=== PATIENT | female | born 1990 | race Asian ===

== ENCOUNTER → 2024-01-14 12:06 | Outpatient (CLI) | payer OTHER, SELFPAY ==
[2024-01-14 12:37] LABS: Appearance Urine UA CLEAR; Bilirubin Urine UA NEGATIVE (NEGATIVE); Color Urine UA YELLOW; Glucose Urine UA NEGATIVE (Negative); Ketones Urine UA NEGATIVE (NEGATIVE); Leukocyte Esterase Urine UA NEGATIVE (NEGATIVE); Nitrite Urine UA NEGATIVE (Negative); Occult Blood Urine UA NEGATIVE (Negative); Protein Urine UA NEGATIVE (Negative); Urobilinogen Urine UA 0.2 E.U./dL (0.2)
[2024-01-14 12:37] LABS: Add Manual Diff / Slide Review NO; Basophils Absolute Auto 100 /uL (0-100); Basophils Percent Auto 0.8 % (0-2); Eosinophils Absolute Auto 300 /uL (0-450); Eosinophils Percent Auto 2.4 % (2-4); Hematocrit 36.1 % (36-46); Hemoglobin 11.5 g/dL (12.0-16.0); Lymphocytes Absolute Auto 1600 /uL (1100-4500); Lymphocytes Percent Auto 12.9 % (25-40); Mean Corpuscular HGB Conc 31.8 % (30-36); Mean Corpuscular Hemoglobin 22.8 PG (26-34); Mean Corpuscular Volume 71.5 fL (80-100); Monocytes Absolute Auto 700 /uL (0-900); Monocytes Percent Auto 5.5 % (3-14); Neutrophils Absolute Auto 9500 /uL (1500-7000); Neutrophils Percent Auto 78.4 % (50-75); Platelet Count 265 X10^3/uL (150-400); Red Blood Cell Count 5.05 X10^6/uL (4.0-5.2); Red Cell Distribution Width 16.3 % (11.6-14.8); White Blood Cell Count 12.1 X10^3/uL (4.5-11.0)
[2024-01-14 12:43] LABS: pH Urine UA 5.5 (4.5-8.0)
[2024-01-14 13:58] LABS: HEMOLYSIS < 15 (0-50); Iron 87 ug/dL (37-170)
[2024-01-14 14:02] LABS: Urine N gonorrhoeae NOT DETECTED
[2024-01-14 14:09] LABS: Percent Iron Saturation 35 % (15-50); Total Iron Binding Capacity 248 ug/dL (265-497); Transferrin 217 mg/dL (206-381)
[2024-01-14 14:11] LABS: Urine Chlamydia NOT DETECTED
[2024-01-14 14:34] LABS: Ferritin 30 ng/mL (6-137)
[2024-01-14 17:29] LABS: Hep C Virus Ab w/Reflex Quant NEGATIVE s/c (NEGATIVE)
[2024-01-14 17:55] LABS: Hepatitis B Surface Antigen NEGATIVE s/c (NEGATIVE); Rubella Antibody IgG 58.8 IU/mL (>15)
[2024-01-14 18:04] LABS: HIV 1 & 2 Ab/Ag 4th Gen Combo NEGATIVE (NEGATIVE)
[2024-01-15 05:54] LABS: RPR Screen Non Reactive (Non Reactive)
[2024-01-15 08:10] LABS: Varicella IgG Antibody <135 index (Immune >165)
== END ==
PROVIDERS: Referring Provider Family Medicine; Visit Provider Family Medicine
DX: Z34.01 Encounter for supervision of normal first pregnancy, first trimester (principal); D50.9 Iron deficiency anemia, unspecified
CPT/HCPCS: 36415; 80055; 81003; 82728; 83540; 83550; 86787; 86803; 86850; 86900; 86901; 87086; 87389; 87491; 87591

== ENCOUNTER → 2024-02-11 09:44 | Outpatient (CLI) | payer OTHER, SELFPAY ==
--- NOTE | 2024-02-11 09:45 | DI.US.S_ITS ---
PROCEDURE: US OB >= 14 WEEKS FETUS INDICATIONS: anatomy US OUTSIDE/PRIOR DATING DATA: Last menstrual period (LMP): 09/24/2023. LMP-based estimated date of delivery (RICH): 06/30/2024. TECHNIQUE: Real-time scanning was performed of the fetus, with image documentation and biometric measurements. Endovaginal scanning: Not performed COMPARISON: None. FINDINGS: General: A single living intrauterine gestation is present. Presentation: Variable. Placenta: Placental position is fundal , without previa. Amniotic fluid index: 16.9 cm, normal range is 5-24 cm. Single deepest vertical pocket is 6.1 cm. heart rate: 149 beats per minute. Maternal cervical canal: 3.6 cm long. Normal lower limit is 2.5 cm. biometrics: Biparietal diameter: 4.7 centimeters, 20 weeks 2 days Head circumference: 17.8 centimeters, 20 weeks 3 days Abdominal circumference: 15.4 centimeters, 20 weeks 4 days Femur length: 3.4 centimeters, 20 weeks 3 days Clinically estimated gestational age: 20 weeks 0 days Composite gestational age from present scan: 20 weeks 3 days Estimated weight and percentile: 360 grams, 75th percentile Anatomic survey: Neuro: Ventricles are non-dilated at less than 10 mm. Cisterna magna is normal at 3-11 mm. Cerebellum is normal in size and morphology. Nuchal skin fold: Normal at less than 6 mm between 14-21 weeks gestational age. Face: Nose and lips, facial profile are normal. Spine: No evidence for spina bifida. Heart: Possible echogenic intracardiac focus within the left ventricle. 4-chambered heart is present, with normal ventricular outflow tracts. Diaphragm: Diaphragm is intact. Stomach: Left-sided stomach is present. Kidneys: No hydronephrosis. Normal is less than 5 mm in 2nd trimester, less than 7 mm in 3rd trimester. Cord: 3-vessel cord has orthotopic insertion. Bladder: Normal in size. Extremities: All 4 extremities identified. IMPRESSION: 1. Single live intrauterine consistent with 20 weeks and 3 days. 2. Possible echogenic focus within the left ventricle. Recommend short-term follow-up and consider aneuploidy screening. 3. The remainder of the anatomic survey is within normal limits. We strive to produce accurate, complete, and clear reports of imaging services. To assist us in improving patient care, this report was composed using standard report templates and voice recognition software. Therefore, it may contain abnormal punctuation, insertions and/or omissions. Occasional wrong-word or sound-alike substitutions may occur. Though we review the report and make efforts to correct it, we do recommend that the report be read carefully in proper context to recognize any text inaccuracies. Dictated by: Donavan Henao M.D. on 02/11/2024 at 12:20 Approved by: Donavan Henao M.D. on 02/11/2024 at 12:24
== END ==
PROVIDERS: Referring Provider Family Medicine; Visit Provider Family Medicine
DX: Z34.00 Encounter for supervision of normal first pregnancy, unspecified trimester (principal); Z3A.20 20 weeks gestation of pregnancy
CPT/HCPCS: 76811

== ENCOUNTER → 2024-03-10 09:50 | Outpatient (CLI) | payer OTHER, SELFPAY ==
--- NOTE | 2024-03-10 09:50 | DI.US.S_ITS ---
PROCEDURE: US OB LIMITED INDICATIONS: echogenic intracardiac focus w/in the lft ventricle on OUTSIDE/PRIOR DATING DATA: Last menstrual period (LMP): September 24, 2023. LMP-based estimated date of delivery (RICH): June 30, 2024. The calculations are made using the clinical RICH of June 30, 2024. TECHNIQUE: Real-time scanning was performed of the fetus, with image documentation. Endovaginal scanning: Not performed COMPARISON: [facility], US, OB >= 14 WEEKS FETUS, 02/11/2024, 10:04. FINDINGS: A single living intrauterine gestation is present. Presentation: Vertex. Placenta: Placental position is fundal, without previa. Amniotic fluid index: 17.2 cm, normal range is 5-24 cm. Single deepest vertical pocket is 4.5 cm. heart rate: 155 beats per minute. Maternal cervical canal: 2.9 cm long. Normal lower limit is 2.5 cm. Clinically estimated gestational age: Approximately 24 weeks and 0 days. Evaluation of the heart demonstrates possible persistent echogenic foci in the left ventricle but appears less conspicuous. Similar finding in the right ventricle. nose and lips appears within normal limits. IMPRESSION: Single living intrauterine gestation with estimated gestational age of approximately 24 weeks 0 days. Re-evaluation of the cardiac structures demonstrate possible persistent echogenic foci in the bilateral ventricles which overall appears less prominent. Findings are nonspecific and can be seen in to 20% of normal fetuses. In the absence of other anatomic abnormalities or maternal risk factors, this finding is most likely a normal variant either representing the normal papillary muscle or chordae tendinae and is of doubtful clinical significance. Recommend correlation with maternal risk factors and further evaluation as clinically appropriate. A follow up ultrasound at 32 weeks can also be considered. Dictated by: Myron Cesar M.D. on 03/11/2024 at 9:52 Approved by: Myron Cesar M.D. on 03/11/2024 at 10:20
[2024-03-10 12:41] LABS: Hematocrit 34.5 % (36-46); Mean Corpuscular Hemoglobin 23.5 PG (26-34); Mean Corpuscular Volume 73.4 fL (80-100); Platelet Count 276 X10^3/uL (150-400); Red Cell Distribution Width 16.4 % (11.6-14.8); White Blood Cell Count 13.3 X10^3/uL (4.5-11.0)
[2024-03-10 13:08] LABS: Natera Collection Specimen Collected
[2024-03-10 14:35] LABS: GTT (PREG) 1 Hour PP 50gm Dose 147 mg/dL (76-139)
== END ==
PROVIDERS: Family Medicine; Referring Provider Family Medicine; Visit Provider Family Medicine
DX: O99.012 Anemia complicating pregnancy, second trimester (principal); D50.9 Iron deficiency anemia, unspecified; O99.342 Other mental disorders complicating pregnancy, second trimester; Z31.430 Encounter of female for testing for genetic disease carrier status for procreative management; Z3A.24 24 weeks gestation of pregnancy
CPT/HCPCS: 76815; 82950; 85027

== ENCOUNTER → 2024-06-02 10:11 | Outpatient (CLI) | payer OTHER, SELFPAY ==
[2024-06-03 09:35] LABS: Strep Grp B PCR NEG for Grp B Strep
== END ==
PROVIDERS: Visit Provider Family Medicine
DX: O09.519 Supervision of elderly primigravida, unspecified trimester (principal); D50.9 Iron deficiency anemia, unspecified
CPT/HCPCS: 87653

== ENCOUNTER 2024-06-02 10:30 | Outpatient (CLI) | payer OTHER, SELFPAY ==
[2024-06-02 11:51] LABS: Add Manual Diff / Slide Review NO; Basophils Absolute Auto 0 /uL (0-100); Basophils Percent Auto 0.4 % (0-2); Eosinophils Absolute Auto 300 /uL (0-450); Eosinophils Percent Auto 2.4 % (2-4); Hematocrit 36.8 % (36-46); Hemoglobin 11.8 g/dL (12.0-16.0); Lymphocytes Absolute Auto 1600 /uL (1100-4500); Lymphocytes Percent Auto 13.6 % (25-40); Mean Corpuscular HGB Conc 32.1 % (30-36); Mean Corpuscular Hemoglobin 23.9 PG (26-34); Mean Corpuscular Volume 74.7 fL (80-100); Monocytes Absolute Auto 1000 /uL (0-900); Monocytes Percent Auto 8.7 % (3-14); Neutrophils Absolute Auto 8800 /uL (1500-7000); Neutrophils Percent Auto 74.9 % (50-75); Platelet Count 252 X10^3/uL (150-400); Red Blood Cell Count 4.93 X10^6/uL (4.0-5.2); Red Cell Distribution Width 15.3 % (11.6-14.8); White Blood Cell Count 11.8 X10^3/uL (4.5-11.0)
== END 2024-06-02 11:15 | disposition home or self-care (01) ==
LOC: LABOR 10:41 → OB 06-07 06:14
PROVIDERS: Referring Provider Family Medicine; Visit Provider Family Medicine
DX: O09.513 Supervision of elderly primigravida, third trimester (principal); Z3A.36 36 weeks gestation of pregnancy
CPT/HCPCS: 59025; 76816; 85025; 87653; G0378; G0379

== ENCOUNTER → 2024-06-02 10:31 | Outpatient (CLI) | payer OTHER, SELFPAY ==
--- NOTE | 2024-06-02 10:33 | DI.US.S_ITS ---
PROCEDURE: US OB FOLLOW UP INDICATIONS: GROWTH OUTSIDE/PRIOR DATING DATA: Last menstrual period (LMP): 09/29/2023. LMP-based estimated date of delivery (RICH): 06/30/2024 First dating scan (date and location): Unknown. Estimated date of delivery (RICH) from first dating scan: Unknown. TECHNIQUE: Real-time scanning was performed of the fetus, with image documentation. COMPARISON: [facility], OB LIMITED, 03/10/2024, 10:13. FINDINGS: A single living intrauterine gestation is present. Presentation: Vertex. Placenta: Placental position is fundal, without previa. Amniotic fluid index: 18.9 cm, normal range is 5-24 cm. heart rate: 143 beats per minute. Maternal cervical canal: 7 point cm long. Normal lower limit is 2.5 cm. Clinically estimated gestational age: 36 weeks 0 days Estimated gestational age from initial scan: 37 weeks 0 days BPD: 9.1 cm 36 weeks 6 days HC: 32 cm 36 weeks 0 days AC: 34 cm 37 weeks 6 days FL: 7.3 cm 37 weeks 3 days. weight 3208 grams, 86th percentile IMPRESSION: Single live intrauterine with gestational age 37 weeks 0 days from today's exam. Dictated by: Little Wilburn M.D. on 06/02/2024 at 16:06 Approved by: Little Wilburn M.D. on 06/02/2024 at 16:11
== END ==
PROVIDERS: Referring Provider Family Medicine; Visit Provider Family Medicine
DX: O09.513 Supervision of elderly primigravida, third trimester (principal); Z3A.37 37 weeks gestation of pregnancy
CPT/HCPCS: 76816

== ENCOUNTER 2024-06-09 11:07 | Outpatient (CLI) | payer OTHER, SELFPAY | END 2024-06-09 12:23 | disposition home or self-care (01) | LOC: LABOR 11:34 → OB 06-14 07:23 | PROVIDERS: Referring Provider Family Medicine; Visit Provider Family Medicine | DX: O09.513 Supervision of elderly primigravida, third trimester (principal); Z3A.37 37 weeks gestation of pregnancy | CPT/HCPCS: 59025; G0378; G0379 ==

== ENCOUNTER 2024-06-16 11:04 | Outpatient (CLI) | payer OTHER, SELFPAY | END 2024-06-16 11:45 | disposition home or self-care (01) | LOC: LABOR 11:26 → OB 06-20 06:36 | PROVIDERS: Referring Provider Family Medicine; Visit Provider Family Medicine | DX: O09.513 Supervision of elderly primigravida, third trimester (principal); Z3A.35 35 weeks gestation of pregnancy | CPT/HCPCS: 59025; G0378; G0379 ==

== ENCOUNTER 2024-06-23 11:10 | Outpatient (CLI) | payer OTHER, SELFPAY | END 2024-06-23 11:51 | disposition home or self-care (01) | LOC: LABOR 11:53 → OB 06-24 15:30 | PROVIDERS: Referring Provider Family Medicine; Visit Provider Family Medicine | DX: O09.513 Supervision of elderly primigravida, third trimester (principal); Z3A.39 39 weeks gestation of pregnancy | CPT/HCPCS: 59025; G0378; G0379 ==

== ENCOUNTER 2024-06-26 20:05 | Inpatient (IN) | payer OTHER, SELFPAY ==
[2024-06-26 22:57] LABS: Add Manual Diff / Slide Review NO; Basophils Absolute Auto 0 /uL (0-100); Basophils Percent Auto 0.2 % (0-2); Eosinophils Absolute Auto 300 /uL (0-450); Eosinophils Percent Auto 2.5 % (2-4); Hematocrit 36.7 % (36-46); Hemoglobin 11.9 g/dL (12.0-16.0); Lymphocytes Absolute Auto 1300 /uL (1100-4500); Lymphocytes Percent Auto 11.9 % (25-40); Mean Corpuscular HGB Conc 32.3 % (30-36); Mean Corpuscular Volume 74.3 fL (80-100); Monocytes Absolute Auto 900 /uL (0-900); Monocytes Percent Auto 8.1 % (3-14); Neutrophils Absolute Auto 8500 /uL (1500-7000); Neutrophils Percent Auto 77.3 % (50-75); Platelet Count 248 X10^3/uL (150-400); Red Blood Cell Count 4.94 X10^6/uL (4.0-5.2); Red Cell Distribution Width 15.3 % (11.6-14.8)
[2024-06-26] MEDS: miSOPROStoL 25 MCG TABLET 50 MCG PO (23:11)
--- NOTE | 2024-06-27 00:52 | PM.OBHP.1 ---
OB HPI Date/Time Date of admission: 06/26/24 History of Present Condition Chief complaint: Induction : 1 Para: 0 Estimated Date of Delivery: 06/30/24 Estimated Gestational Age (weeks): 39+4 Narrative: Luis Davis is a 33 year old female Comments: presenting for induction of labor. Indications Indication for induction OB: other History of Present care: good care Dating criteria: LMP confirmed by 1st trimester US Ultrasounds: normal mid trimester US Abnormal ultrasound findings: left echogenic focus Narrative: G1 [place] Mandarin speaker, but fluent in Samoan, may need hemstitcher only for complex medical conversation ( also speaks Mandarin, but lacks medical vocabulary) Hemant Beta thalasemia trait - hgb stable Persistent echogenic foci in the bilateral ventricles -> referred to [facility] for level 2 US and cleared Failed 1 hr GTT, passed 3 hr Varicella non immune AMA Assigned to Saranya [facility] melisa w/ Margo Preadmission Labs Blood type: A (+) positive -: Antibody screen: negative, Cystic fibrosis screen: negative, GBS status: negative, HBsAG: negative, HIV: negative, HSV 1: unknown, HSV 2: unknown and RPR/VDLR: negative -: Chlamydia screen: not detected and Gonorrhea screen: not detected -: Rubella: immune and Varicella: not immune HCT: 36.7 HCAB: negative PAP: Normal Cell-free DNA: low risk 1 hr GTT: 147 3 hr GTT: 3 hr (negative) Evaluation Evaluation Baseline heart rate: 130 Variability: Moderate (11-25) monitor accelerations: Present Monitor Decelerations: Absent Status: Category l Dilation (cm): 1 Effacement (%): 50 station: -2 [facility] Medical History (Updated 02/11/24 @ 18:34 by Brian Mckee MD) Microcytic anemia Dental root implant present Surgical History (Updated 01/13/24 @ 14:36 by Mariza Gaxiola RN) [place] teeth extracted Family History (Updated 02/28/24 @ 20:32 by Millie Cook) Grandfather Stroke Smoker Alcohol abuse Cancer Social History marital status: number of children: 0 household members: spouse lives independently: Yes caregiver/support person: No housing: house pets and animals: Yes (cat, no litter box) education level: college occupational status: employed current occupational exposures/hazards: Yes (mostly gas/propane fumes) special jazz needs: No travel history: recent seatbelt use: always helmet use: No water heater temp set < 120 deg: Yes working smoke detector in home: No fire extinguisher in home: Yes firearms in home: Yes firearms unloaded and locked: No (unloaded, but not locked up (family heirloom)) Smoking Status: Never smoker second hand exposure: No alcohol intake: former substance use type: does not use during the past year weight has: remained stable well-balanced diet: daily or most days daily servings fruits/ve or more times/day caffeine: Yes (mostly tea) Type(s) of exercise: walking, other and yoga Meds Home Medications and Allergies Home Medications Medication Instructions Recorded Confirmed Type vitamin-ferrous sulfate tab PO 01/13/24 06/23/24 History 27 mg iron-folic acid 0.8 mg tablet Double Electric Breast Pump and #1 ea 06/09/24 06/23/24 Rx Supplies Allergies Allergy/AdvReac Type Severity Reaction Status Date / Time No Known Drug Allergies Allergy Verified 06/23/24 10:30 Review of Systems Review of Systems ROS: Yes All systems reviewed with the patient and are negative except as otherwise documented OB Exam Vital signs Blood Pressure: 121/71 Pulse Rate: 75 Temperature: 97.9 F HENMT Head: normal to inspection Resp Effort & Inspection: normal respiratory effort and able to speak in complete sentences Extremities Lower extremity: Yes normal to inspection GI Other: gravid, nontender, nondistended Objective Labs 06/26/24 22:15 Labs: Laboratory Results - last 24 hr 06/26/24 22:15 WBC 11.0 RBC 4.94 Hgb 11.9 L Hct 36.7 MCV 74.3 L MCH 24.0 L MCHC 32.3 RDW 15.3 H Plt Count 248 Neut % (Auto) 77.3 H Lymph % (Auto) 11.9 L [place] % (Auto) 8.1 Eos % (Auto) 2.5 Baso % (Auto) 0.2 Neut # (Auto) 8500 H Lymph # (Auto) 1300 [place] # (Auto) 900 Eos # (Auto) 300 Baso # (Auto) 0 Blood Type A Positive Antibody Screen Negative Assessment and Plan Assessment and Plan Assessment and Plan narrative: 33yo at 39+4wks admitted for induction of labor. -CBC, T&S on admission -continuous EFM -epidural PRN -GBS neg, ppx not indicated -PPH risk low -VTE risk low, SCDs with epidural -anticipate L&D Counseling: Common procedures and interventions related to the management of were explained to the patient, including assistance at vaginal delivery with episiotomy, vacuum, or forceps, use of medications to stop premature labor or induce labor, and assessment including auscultation (listening to the heart), use of electronic monitoring (external and / or internal), and use of scalp electrode and/or intrauterine pressure catheter.? It was also explained that approximately 20-30% of mothers have a need for delivery during their labor course. It was explained to the patient that , labor and delivery are ordinarily normal physiological events and can be expected to provide a healthy outcome for mother and baby in the majority of cases. However, there are complications that may arise during , labor, and delivery, such as: hemorrhage requiring administration of blood and/or blood products, surgical intervention, possibly even hysterectomy for life-saving purposes; possibility of infection requiring antibiotics, prolonged hospital stay, and rarely surgical intervention; possibility of blood clots;? possibility of retained products of conception requiring surgical intervention;? possibility of serious tears or injury to the vagina, cervix, perineum, or rectum;? possibility of injury to abdominal structures if delivery is required;? and rarely maternal or may occur. Time-Based Coding :: [30min] spent with patient and on the chart (including review of chart, obtaining history, exam, reviewing outside data, placing orders, documenting exam and treatment plan, and counseling patient) on [06/27/24].
[2024-06-27 01:01] VITALS: BP 121/71; PULSE 75; TEMP 36.6
[2024-06-27 01:28] VITALS: BP 123/60
[2024-06-27] MEDS: miSOPROStoL 25 MCG TABLET 50 MCG PO ×2 (03:34→08:11)
--- NOTE | 2024-06-27 13:35 | PM.OBPNLAB ---
Date/Time Date Patient Seen: 06/27/24 Time Patient Seen: 13:06 Pain Control Pain control: tolerating well Pelvic Exam Dilation (cm): 2 Effacement (%): 50 station: -2 Amniotic membrane status: Intact Contractions Contractions on admission: irregular Contraction frequency (min): 3 Contraction duration (min): 1 Contraction pattern: Regular Contraction intensity: Mild Status status: Category l Heart Rate Baseline: 135 Monitor Accelerations: Present Monitor Decelerations: Absent Monitor Variability: Moderate Assessment and Plan Assessment: induction ongoing Comments: 33 yo at 39w5d admitted for mIOL for AMA # mIOL: Indication- AMA - s/p Hay baloon placement at 13:10 - Start Pitocin augmentation once favorable - GBS negative, no ppx - Epidural available at pt request - Continuous monitoring # Beta thalassemia trait: - CBC on admission with Hgb of 11.9 # AMA - continuous monitoring # Persistent echogenic foci in the bilateral ventricles -> referred to [facility] for level 2 US and cleared # Varicella non-immune: - PP MMRV
[2024-06-27] MEDS: LACTATED RINGERS 1,000 ML 100 ML IV ×2 (15:42→20:32)
[2024-06-27] MEDS: OXYTOCIN PREMIX 30 UNIT/500 ML PLAST..BAG IV (15:43)
--- NOTE | 2024-06-27 19:51 | PM.OBPNLAB ---
Date/Time Date Patient Seen: 06/27/24 Time Patient Seen: 18:00 Pain Control Pain control: tolerating well Pelvic Exam Dilation (cm): 5 Effacement (%): 70 station: -2 Amniotic membrane status: Ruptured Comments: AROM at 17:58, clear fluid, grossly large volume noted Contractions Pitocin rate (mU/min): 6 Contraction frequency (min): 3 Contraction pattern: Regular Contraction intensity: Mild Status status: Category l Heart Rate Baseline: 135 Monitor Accelerations: Present Monitor Decelerations: Absent Monitor Variability: Moderate Assessment and Plan Plan: continuous present management Comments: 33 yo at 39w5d admitted for mIOL for AMA # mIOL: Indication- AMA - s/p Cytotec 150mcg - s/p Hay baloon placement at 13:10, fell out at 14:26 - s/p AROM at 18:00 with clear fluid - Continu Pitocin augmentation, currently at 6 mu/min - GBS negative, no ppx - Epidural available at pt request - Continuous monitoring # BEta thalassemia trait: - CBC on admission with Hgb of 11.9 # AMA - continuous monitoring # Persistent echogenic foci in the bilateral ventricles -> referred to [facility] for level 2 US and cleared # Varicella non-immune: - PP MMRV
--- NOTE | 2024-06-27 21:03 | PM.AN.REGBLK ---
Regional Block Pre-procedure Procedure: Continuous Lumbar Epidural for L&D (with dural puncture) Attending OB provider: Patt Rene PMH/ROS narrative: 33yo female full-term in labor requesting epidural. See pre-anesthesia evaluation for further details. ASA Class: II Labs: Hct 36.7 % (36-46) 06/26/24 22:15 Plt Count 248 X10^3/uL (150-400) 06/26/24 22:15 Medications: Current Medications Generic Name Dose Route Start Last Admin Trade Name Freq PRN Reason Stop Dose Admin Calcium Carbonate 1,000 mg 06/26/24 22:32 Calcium Carbonate 500 Mg Tab PO Q2HR PRN Dyspepsia Carboprost Tromethamine 250 mcg 06/26/24 22:32 Carboprost 250 Mcg/Ml Ampul IM Q90M PRN Bleeding Diphenhydramine HCl 25 mg 06/27/24 21:01 Diphenhydramine 50 Mg/Ml Vial IV Q10M PRN Pruritis Ephedrine Sulfate 10 mg 06/27/24 21:01 Ephedrine 50 Mg/Ml Vial IV Q5M PRN Blood pressure decrease more than 20% of baseline. Oxytocin/Lactated Ringer's 30 unit in 500 mls @ 200 mls/hr 06/26/24 22:32 Oxytocin Premix IV CONT PRN Bleeding Protocol Tranexamic Acid 1,000 mg/ 100 mls @ 600 mls/hr 06/26/24 22:32 Sodium Chloride IV NOW PRN Bleeding Oxytocin/Lactated Ringer's 30 unit in 500 mls @ 2 mls/hr 06/27/24 15:30 06/27/24 15:43 Oxytocin Premix IV 2 milliunit/min TITRATE SHANE 2 mls/hr Administration Protocol 2 MILLIUNIT/MIN FENT 2MCG/ML BUPIV 0.125% EPI 200 mcg in 100 mls @ 6 mls/hr 06/27/24 21:15 Fentanyl/Bupiv/Ns 2mcg/Ml - 0.125% EPIDURAL CONT SHANE Lidocaine HCl 20 ml 06/26/24 22:32 Lidocaine 1% 20 Ml INJ INTRA-OP PRN Post Delivery Methylergonovine Maleate 0.2 mg 06/26/24 22:32 Methylergonovine 0.2 Mg/Ml Vial IM NOW PRN Bleeding Methylergonovine Maleate 0.2 mg 06/26/24 22:32 Methylergonovine 0.2 Mg Tablet PO Q6HR PRN Heavy Bleeding Misoprostol 50 mcg 06/26/24 22:32 06/27/24 08:11 Misoprostol 25 Mcg Tablet PO 50 mcg Q4H PRN Administration cervical ripening Misoprostol 400 mcg 06/26/24 22:32 Misoprostol 200 Mcg Tablet SL NOW PRN Bleeding Misoprostol 800 mcg 06/26/24 22:32 Misoprostol 200 Mcg Tablet NE NOW PRN Bleeding Nalbuphine HCl 2.5 mg 06/27/24 21:01 Nalbuphine 20 Mg/Ml Ampul IV Q10M PRN Pruritis Naloxone HCl 0.2 mg 06/26/24 22:32 Naloxone 0.4 Mg/Ml Vial IV Q2MIN PRN Opiate Reversal Ondansetron HCl 4 mg 06/26/24 22:32 Ondansetron 4 Mg/2 Ml Inj IV Q4HR PRN Nausea And Vomiting Oxytocin 10 unit 06/26/24 22:32 Oxytocin 10 Unit/Ml Vial IM NOW PRN Bleeding Allergies: Allergies Allergy/AdvReac Type Severity Reaction Status Date / Time No Known Drug Allergies Allergy Verified 06/27/24 01:37 Procedure Insertion date: 06/27/24 Insertion time: 20:37 Prep/Local: 1% lidocaine (chloraprep) Interspace: L3-4 Patient position: sitting Needle: 18 gauge Hustead (27g 5 Pencan for dural puncture) Loss of resistance with: saline BRENDA at (cm): 4 Catheter placed at SKIN (cm): 12 Catheter in SPACE (cm): 8 Insertion: No CSF, No Blood, Yes Paresthesia with insertion, No Paresthesia with injection and No Test dose reaction Initial Medications TEST DOSE time: 20:39 TEST DOSE: 1.5% lidocaine with epinephrine 1:200k (mL): 3 BOLUS DOSE time: 20:40 BOLUS DOSE (mL): 2 BOLUS DOSE med: other (2 ml bolus same as test dose, plus 20:54 bolus of epidural infusion 5 ml) Infusion INFUSION: 0.125% bupivacaine and with fentanyl 2 mcg/mL Initial rate (mL/hr): 8 Post-procedure Anesthesia date START: 06/27/24 Anesthesia time START: 20:29 Anesthesia date END: 06/28/24 Anesthesia time END: 04:27 Post-procedure Anesthesia Assessment: Yes CV function: HR/BP stable, Yes Resp function: RR/sat/airway adequate, Yes Post-op hydration adequate, Yes Pain control adequate, Yes Nausea & vomiting absent, Yes Temperature > 36 C, Yes Mental status appropriate and No Anesthesia complications
[2024-06-28] MEDS: FENT 2MCG/ML BUPIV 0.125% EPI 200 MCG/100 ML PLAST..BAG 6 MCG EPIDURAL (02:40)
--- NOTE | 2024-06-28 05:13 | PM.OBPNLAB ---
Date/Time Date Patient Seen: 06/28/24 Time Patient Seen: 03:20 Pain Control Pain control: epidural Comments: 33-year-old 1 para 0 at 39-,5/7 weeks gestation status post cervical ripening with misoprostol and Hay bulb placement. She progressed into active labor in the early evening. Artificial rupture membranes was performed with clear amniotic fluid at 5:30 p.m.. She received an epidural for pain management at 8:40 p.m.. She progressed to complete dilation. complicated by a failed 1 hour glucose but normal 3 hour. Estimated weight at 36 weeks was 7 lb. She has beta thalassemia trait. Has had a stable hemoglobin throughout the . Category 1 tracing throughout. Pelvic Exam Dilation (cm): 10 Effacement (%): 100 station: +1 Amniotic membrane status: Ruptured Contractions Contractions on admission: none Monitor mode: External Pitocin rate (mU/min): 8 Contraction frequency (min): 3 Contraction duration (min): 1 Contraction pattern: Regular Contraction intensity: Strong/Firm Status status: Category l Heart Rate Baseline: 135 Monitor Accelerations: Present Monitor Decelerations: Absent Monitor Variability: Moderate Assessment and Plan Assessment: active labor Comments: Assessment: 33-year-old 1 para 0 at 39-,5/7 weeks gestation entering second stage of labor Plan: Expected management to spontaneous vaginal delivery Shoulder dystocia precautions taken
--- NOTE | 2024-06-28 05:17 | P.PCNOB_ITS ---
Events: Labor Induction Labor & Delivery Delivery date: 06/28/24 Cervical ripening method: per misoprostal protocol (And balloon) Induction method: per pitocin protocol Delivery augmentation: rupture of membranes Delivery monitor: external FHT and external uterine Route of delivery: Episiotomy description: None L&D Laceration Description: Vaginal - 1st Degree (On the left) and Labial (First-degree right labial, second-degree left labial) Delivery repair: vicryl and chromic Quantitative Blood Loss: 690 Anesthesia Type: Epidural Complications: None Narrative: Patient complete and pushed for 1 hour and 18 minutes. At 4:27 a.m., a live male infant delivered spontaneously in the KEMI presentation, over an intact perineum. A loose nuchal cord x1 was reduced on the perineum. The remainder of the body delivered without difficulty and was placed on mom's abdomen. There was an arm cord on the baby's left arm which was also reduced. Pitocin was gi corrie in the IV fluids. After the cord stopped pulsing, the cord was double clamped and cut. Cord bloods were obtained. The placenta delivered intact with a three-vessel cord at 4:36 a.m.. The fundus was massaged to firm. The perineum and vagina were inspected. There was a second-degree left labial laceration near the clitoris. There was a first-degree right labial laceration. There was a first-degree vaginal sidewall laceration on the left. These were repaired in the usual fashion. Hemostasis was achieved. QBL 690 cc. Apgars 7 at 1 minute and 9 at 5 minutes. . Epidural analgesia. Mom and infant stable to recovery. weight 8 lb 13.1 oz. Lap x 10, 4 x 4 x 10, 3 needles counts correct. [place] Baby 1: gender: Male Presentation: vertex Position: Left Occiput Anterior Placenta delivery description: Spontaneous Cord Vessel Description: 3 Vessels, Nuchal Cord, Loose, Reduced (on the perineum), Clamped/Cut (after the cord stopped pulsing) and Around Extremity x1 (left arm) score (1 min): 7 score (5 min): 9 weight: 8 lb 13.1 oz Plan for aftercare: Routine care
[2024-06-28] MEDS: IBUPROFEN 600 MG TABLET PO ×3 (06:38→19:46)
[2024-06-28] MEDS: DERMOPLAST SPRAY 20% 60 ML 1 SPRAY TOP (06:39)
[2024-06-28] MEDS: ACETAMINOPHEN 325 MG TABLET 650 MG PO ×3 (06:39→19:46)
[2024-06-28] MEDS: WITCH HAZEL/GLYCERIN PADS 1 EACH TOP (06:40)
[2024-06-28] MEDS: LIDOCAINE 1% 20 ML INJ (06:40)
[2024-06-29] MEDS: IBUPROFEN 600 MG TABLET PO ×2 (01:49→09:35)
[2024-06-29] MEDS: ACETAMINOPHEN 325 MG TABLET 650 MG PO ×2 (01:50→09:35)
[2024-06-29 06:46] LABS: Hematocrit 28.9 % (36-46); Hemoglobin 9.5 g/dL (12.0-16.0)
[2024-06-29] MEDS: PRENATAL VIT,CALC/IRON/FOLIC 1 TABLET 1 TAB PO (09:35)
[2024-06-29] MEDS: DOCUSATE 100 MG CAPSULE PO (09:35)
--- NOTE | 2024-07-16 22:28 | PM.OBDS.1 ---
Discharge Providers Provider Date of admission: 06/26/24 20:05 Discharge Date: 06/28/24 Primary care physician: Doctor Adriano MD Consults: 06/26/24 22:32 Consult to Anesthesiology Urgent Comment: Consulting Provider: Anesthesiologist Reason for consultation: Epidural 06/29/24 05:22 Consult to Envelope Folder Routine Comment: Discharge provider: Monica Light MD Summary Hospital Course Date Patient Seen: 06/28/24 Time Patient Seen: 09:00 Diagnoses: 39-4/7 weeks gestation Cervical ripening with misoprostol and Hay balloon Pitocin induction of labor Artificial rupture of membranes Epidural analgesia Spontaneous vaginal delivery Hospital Course: Patient is a 33-year-old 1 para 1 who presented on June 26, 2000 for cervical ripening prior to induction of labor. She received 3 doses of misoprostol and a Hay balloon. On June 26, 2024 she was 1 cm/50% and-2 station. On she progressed to 2 cm/50%/-2 station. On that same day at 6:00 p.m. she had artificial rupture of membranes when she was 5 cm/70%/-2 station. She received an epidural for pain management. She progressed to complete dilation and had a spontaneous vaginal delivery without complication. She was discharged home on June 28, 2024. Her bleeding was tapering. was going well. Peripartum Data Delivery Method: Natural Vaginal Laceration Description: Vaginal - 1st Degree (Less) and Labial (Bilateral) Episiotomy description: None Procedures: Misoprostol cervical ripening Hay balloon cervical ripening Pitocin induction of labor Epidural analgesia Artificial rupture of membranes Spontaneous vaginal delivery Repair of obstetrical laceration complications: none 1: Gender: Male Disposition of : home Status at Discharge Cognitive/behavioral status at discharge: oriented Functional status at discharge: independent ambulation Overall status at discharge: patient is progressing back to baseline Time Spent with Patient Time attestation: Total time spent providing and/or coordinating discharge services: Time spent: Less than 30 minutes Objective Labs 06/29/24 06:31 Exam Narrative Exam Narrative: Generally: Patient is sitting up in bed, holding , no acute distress Fundus: Firm at U Extremities: Trace edema, negative Homans Discharge Plan Discharge Plan Patient Disposition: Home Provider Discharge Comment: Call with fever, chills, or bleeding vaginally more than a pad in an hour Ibuprofen 600 mg every 6 hours as needed Tylenol 650 mg every 6 hours as needed Discharge orders & Medications Prescriptions: Continued vit-ferrous sulfat-FA 27 mg iron- 0.8 mg tablet PO No Action (DME) Double Electric Breast Pump and Supplies See Rx Instructions .ROUTE .MEDSUPPLY Qty: 1 0RF Rx Instructions: As directed Follow up/Referrals: Lisa Beaver MD [Physician] - (6 week Appt w/ Dr. Beaver: @ 2:30pm) Diet/Activity/Treatments Diet: Regular Activity: Nothing in the vagina for 6 weeks Skin/Wound/Dressing Care Report to your healthcare provider any signs of infection, such as:: chills, fever, increased pain and unusual drainage Visit Report/Discharge Packet Instructions: DI for Labor and Delivery, Vaginal Stand Alone Forms: Discharge: Care, Patient Portal/API, Stroke Signs & Symptoms Discharge Data Primary Care Provider: Miscellaneous,Doctor
== END 2024-06-29 11:20 | disposition home or self-care (01) | DRG 807 ==
PROVIDERS: Obstetrics & Gynecology; Admitting Provider Student in an Organized Health Care Education/Training Program; Referring Provider Student in an Organized Health Care Education/Training Program; Visit Provider Student in an Organized Health Care Education/Training Program
DX: O70.1 Second degree perineal laceration during delivery (principal); Z37.0 Single live birth; Z3A.39 39 weeks gestation of pregnancy
CPT/HCPCS: 36415; 59050; 59400; 59409; 85014; 85018; 85025; 86850; 86900; 86901; G0379; J2590